=== PATIENT | female | born 1950 | race Caucasian/White ===

== ENCOUNTER → 2017-05-07 | Outpatient (CLI) | payer MEDICARE, BC ==
[~2017-05-07] MED LIST: ASPIRIN EC81 MG PO; LASIX DPS40 MG PO; LASIX40 M1 PO; MULTIVITAMINS1 EAC1 PO; TOPROL XL DPS50 MG PO; VITAMIN D1000 UNI1 PO; XARELTO15 MG PO
== END | disposition home or self-care (01) ==
LOC: RAD.S 12:51
DX: Z12.31 Encounter for screening mammogram for malignant neoplasm of breast (principal)